=== PATIENT | female | born 1975 | race Two or more races ===

== ENCOUNTER → 2020-08-25 08:03 | Outpatient (BNVA) | payer BC, SELFPAY | PROVIDERS: PCP Internal Medicine; Referring Provider Internal Medicine; Visit Provider Surgery | DX: Z76.89 Persons encountering health services in other specified circumstances (principal) ==

== ENCOUNTER → 2020-10-04 07:24 | Outpatient (BNVA) | payer BC, SELFPAY | PROVIDERS: PCP Internal Medicine; Visit Provider Surgery | DX: Z76.89 Persons encountering health services in other specified circumstances (principal) ==

== ENCOUNTER → 2020-11-08 08:13 | Outpatient (BNVA) | payer BC, SELFPAY | PROVIDERS: PCP Internal Medicine; Visit Provider Surgery | DX: Z76.89 Persons encountering health services in other specified circumstances (principal) ==

== ENCOUNTER → 2021-01-10 07:28 | Outpatient (BNVA) | payer SELFPAY | PROVIDERS: PCP Internal Medicine; Visit Provider Surgery ==

== ENCOUNTER → 2021-02-25 07:15 | Outpatient (BNVA) | payer SELFPAY | PROVIDERS: PCP Internal Medicine; Visit Provider Surgery ==

== ENCOUNTER 2021-09-08 08:01 | Outpatient (REF) | payer BC, SELFPAY ==
[2021-09-08 09:29] LABS: MANUAL DIFF FLAG NO
[2021-09-08 10:08] LABS: Basophils Percent Auto 0.2 % (0-2); Eosinophils Percent Auto 0.6 % (0-4); Hematocrit 40.6 % (37.0-47.0); Hemoglobin 13.9 g/dl (12.0-16.0); Imm Gran Abs Auto 0.01 X10*3/uL (0.00-0.03); Imm Gran Pct Auto 0.2 % (0.0-0.4); Lymphocytes Absolute Auto 1.4 X10*3/uL (1.2-4.9); Lymphocytes Percent Auto 28.5 % (20-40); Mean Corpuscular HGB Conc 34.2 g/dl (31.0-35.0); Mean Corpuscular Hemoglobin 29.9 pg (27.0-33.0); Mean Corpuscular Volume 87.3 fL (80.0-98.0); Mean Platelet Volume 9.8 fL (9.4-12.3); Monocytes Absolute Auto 0.2 X10*3/uL (0.1-1.2); Monocytes Percent Auto 3.9 % (2-11); Neutrophils Absolute Auto 3.22 x10*3/uL (2.0-8.3); Neutrophils Percent Auto 66.6 % (45-73); Platelet Count 346 X10*3/uL (160-400); Red Blood Count 4.65 X10*6/uL (4.20-5.50); Red Cell Distribution Width 11.8 % (11.0-16.0); White Blood Count 4.8 X10*3/uL (4.8-10.8)
[2021-09-08 10:20] LABS: Prothrombin Time 11.6 SEC (9.9-13.0)
[2021-09-08 10:23] LABS: Partial Thromboplastin Time 36.4 SEC (24.1-38.0)
[2021-09-08 10:25] LABS: Estimated Average Glucose 105 mg/dL; Hemoglobin A1c % 5.3 %
[2021-09-08 10:48] LABS: Anion Gap 12 (12-20); Blood Urea Nitrogen 13 mg/dL (9-16); C Reactive Protein 0.09 mg/dL (< or = 0.50); Calcium 9.3 mg/dL (8.4-10.2); Carbon Dioxide 31 mmol/L (22-29); Chloride 101 mmol/L (96-108); Cholesterol 185 mg/dL; Estimated Glomerular Filt Rate > 60; Glucose Random 88 mg/dL (60-115); HDL Cholesterol 47 mg/dL; Iron 89 mcg/dL (30-160); LDL Cholesterol Calculated 120 mg/dl; Percent Iron Saturation 23 % (15-50); Potassium 3.1 mmol/L (3.3-5.1); Sodium 141 mmol/L (135-145); Total Iron Binding Capacity 380 mcg/dL (228-428); Triglycerides 90 mg/dL; Unsaturated Iron Binding 291 ug/dL
[2021-09-08 11:16] LABS: Ferritin 26 ng/mL (10-250); TSH reflex Free T4 1.83 uIU/mL (0.32-4.0); Vitamin D 25-OH Total 28.9 ng/mL (>30)
[2021-09-08 13:15] LABS: Vitamin B12 926 pg/mL (200-900)
[2021-09-09 14:12] LABS: Calcium (PTHI) 9.1 mg/dL (8.6-10.2); PTHI 59 pg/mL (14-64)
[2021-09-12 04:12] LABS: Zinc 82 mcg/dL (60-130)
[2021-09-12 06:31] LABS: Vitamin B1 40 nmol/L (8-30)
[2021-09-13 23:06] LABS: Vitamin A 44 mcg/dL (38-98)
== END 2021-09-08 08:02 | disposition home or self-care (01) ==
LOC: HO.LAB 08:01
PROVIDERS: Visit Provider Physician Assistant Surgical
DX: E66.9 Obesity, unspecified (principal); K90.9 Intestinal malabsorption, unspecified; Z79.899 Other long term (current) drug therapy; Z98.84 Bariatric surgery status
CPT/HCPCS: 36415; 80048; 80061; 82306; 82607; 82728; 83036; 83540; 83970; 84425; 84443; 84590; 84630; 85025; 85610; 85730; 86140

== ENCOUNTER 2022-06-27 12:03 | Emergency (ER) | payer BC, SELFPAY ==
[2022-06-27 12:14] VITALS: BP 151/92; PULSE 101; RESP 18; TEMP 36.9; O2SAT 97; BMI 33.6
[2022-06-27 15:43] LABS: MANUAL DIFF FLAG NO
[2022-06-27 15:45] LABS: Basophils Percent Auto 0.4 % (0-2); Eosinophils Percent Auto 0.6 % (0-4); Hematocrit 40.6 % (37.0-47.0); Hemoglobin 13.7 g/dl (12.0-16.0); Imm Gran Abs Auto 0.01 X10*3/uL (0.00-0.03); Imm Gran Pct Auto 0.1 % (0.0-0.4); Lymphocytes Absolute Auto 2.3 X10*3/uL (1.2-4.9); Mean Corpuscular HGB Conc 33.7 g/dl (31.0-35.0); Mean Corpuscular Hemoglobin 29.1 pg (27.0-33.0); Mean Corpuscular Volume 86.2 fL (80.0-98.0); Mean Platelet Volume 9.6 fL (9.4-12.3); Monocytes Absolute Auto 0.4 X10*3/uL (0.1-1.2); Neutrophils Absolute Auto 4.3 x10*3/uL (2.0-8.3); Neutrophils Percent Auto 60.9 % (45-73); Platelet Count 342 X10*3/uL (160-400); Red Blood Count 4.71 X10*6/uL (4.20-5.50); Red Cell Distribution Width 11.9 % (11.0-16.0)
--- NOTE | 2022-06-27 15:51 | ED_ITS ---
HPI - Recheck/Abnormal Lab/Rx General Chief Complaint: Recheck/Abnormal Lab/Rx Stated Complaint: Abnormal labs sent by pcp Time Seen by Provider: 06/27/22 14:54 Source: patient Mode of arrival: ambulatory Limitations: no limitations History of Present Illness HPI narrative: 46-year-old female with history of gastric bypass 2020 with chronic hypokalemia presents with reports of normal labs are drawn this morning by her primary care doctor. Patient has no symptoms. She feels well. She reports she had some his annual labs done this morning and was called and informed that her potassium was low and should go into the emergency room for further evaluation. Patient tells me she takes 10 mEq of potassium daily. Patient denies any recent illnesses. No vomiting or diarrhea. She has been eating and drinking normally. Patient tells me this is a chronic problem for her. Related Data Home Medications Medication Instructions Recorded Confirmed chlorthalidone 25 mg tablet 25 mg PO DAILY 09/08/21 09/08/21 clonazepam 1 mg tablet 1 mg PO BEDTIME PRN 09/08/21 09/08/21 dextroamphetamine-amphetamine 15 1 tab PO BID 09/08/21 09/08/21 mg tablet lorazepam 0.5 mg tablet 0.5 mg PO DAILY PRN 09/08/21 09/08/21 [id number]-yovbmkca-[id number] 45 mg-folic cap PO 09/08/21 09/08/21 acid 800 mcg-vit K 120 mcg capsule (Bariatric Multivitamins) nortriptyline 50 mg capsule mg PO 09/08/21 09/08/21 trazodone 100 mg tablet 100 mg PO BEDTIME 09/08/21 09/08/21 Previous Rx's Medication Instructions Recorded potassium chloride 10 mEq 10 meq PO DAILY #14 caps 09/08/21 capsule,extended release pantoprazole 40 mg tablet,delayed 40 mg PO DAILY #30 tabs 11/07/21 release sucralfate 1 gram tablet (Carafate) 1 g PO BID #60 tabs 05/04/22 potassium chloride 20 mEq 20 meq PO DAILY #30 tabs 06/27/22 tablet,extended release Allergies Allergy/AdvReac Type Severity Reaction Status Date / Time Pt states no medication Allergy Unknown Anaphylaxis Uncoded 09/08/21 08:13 allerg Review of Systems Review of Systems: Yes all other systems are reviewed and are negative Constitutional: Constitutional: Reports no additional constitutional complaints, Denies body ache(s), Denies chills, Denies fever(s), Denies headache(s) and Denies weakness Eyes: Eyes: Reports no additional eye complaints and Denies change in vision ENT: Reports system reviewed and no additional complaints, except as documented, Denies dizziness, Denies headache(s), Denies nasal congestion, Denies nasal discharge and Denies neck pain Cardiovascular: Cardiovascular: Reports no additional cardiovascular complaints, Denies chest pain, Denies leg edema and Denies dyspnea Respiratory: Respiratory: Reports no additional respiratory complaints, Denies cough and Denies dyspnea Gastrointestinal: Gastrointestinal: Reports no additional gastrointestinal complaints, Denies abdominal pain, Denies diarrhea, Denies nausea and Denies vomiting Genitourinary: Genitourinary: Reports no additional female genitourinary complaints and Denies urinary incontinence Musculoskeletal: Musculoskeletal: Reports no additional musculoskeletal complaints, Denies back pain, Denies arthralgias, Denies joint swelling, Denies neck pain, Denies numbness and Denies tingling Integumentary/Breasts: Skin/Breast: Reports system reviewed and no additional complaints, except as docu and Denies rash Neurologic: Reports system reviewed and no additional complaints, except as documented, Denies Abnormal speech present, Denies dizziness, Denies headache (s), Denies numbness, Denies tingling and Denies weakness PMFSH Past Medical History Attestation statement: The following information was validated with the patient. Source: old records reviewed and nursing notes reviewed Medical History Intestinal malabsorption Obesity Surgical History History of Mukul-en-Y gastric bypass Hx laparoscopic cholecystectomy Hx of section Status post gastric banding Family History Family History Father Prostate CA DM (diabetes mellitus) CVD (cardiovascular disease) HTN (hypertension) Obesity Arthritis Mother Obesity HTN (hypertension) Sister HTN (hypertension) Sister Ovarian ca Skin cancer DM (diabetes mellitus) HTN (hypertension) Sister Ovarian ca DM (diabetes mellitus) HTN (hypertension) Son No problems noted. Daughter No problems noted. Social History Social History Alcohol intake: never Advance Directives: No Advance Directives Information Provided: Yes Physical Exam Vital Signs: Vital Signs: Last Vital Signs Temp 98.4 F 06/27/22 12:14 Pulse 101 H 06/27/22 12:14 Resp 18 06/27/22 12:14 BP 151/92 H 06/27/22 12:14 Pulse Ox 97 06/27/22 12:14 O2 Del Method 06/27/22 12:14 BMI result Body Mass Index 33.6 Const: General: cooperative, healthy appearing, comfortable and no acute distress Orientation/consciousness: patient oriented x3 Limitations: no limitations HEENT: Head: Yes normal to inspection Ears: hearing grossly normal bilaterally General nose exam: Normal external nose present Face and sinus: Yes normal facial exam Mouth: Normal oral and palatal mucosa present Throat: Yes posterior oropharynx normal Eyes: General: appearance normal, both eyes and all related structures Pupils: Equal, round and reactive pupils present Neck: Neck: Yes normal visual inspection Chest: Chest palpation & inspection: normal inspection of the chest Resp: Effort & Inspection: normal respiratory effort Auscultation: clear to auscultation bilaterally Cardio: Rate: regular rate Rhythm: regular rhythm Peripheral pulses: Peripheral pulses 2+ throughout GI: Inspection: Yes normal to inspection Palpation (GI): Soft to palpation and nontender Auscultation: normal bowel sounds Back/Spine/Pelvis: Thoracic/Lumbar Spine: thoracic and lumbar spine normal to inspection Skin: General skin exam: no rashes or lesions noted Neuro: General: patient oriented x3, no focal motor deficits and normal sensation to monofilament Cranial nerves: Yes Equal, round and reactive pupils present Cognition (Neuro): normal cognition Speech: No Abnormal speech present Gait exam (Neuro): Normal gait present Motor exam (neuro): 5/5 motor strength present throughout Extrem: General: Yes normal to inspection Course Course Course Narrative: potassium is 3.0. All other labs are unremarkable. EKG shows no new changes. Patient has no symptoms and feels well. She tells me this is a chronic problem for her. She received 60 mEq of potassium while she was here. She will be discharged home with an increased dose of potassium daily. Patient is on multiple medications which may cause hypokalemia including omeprazole and chlorthalidone. She should follow-up with primary care doctor in 7 days for repeat potassium levels. Reviewed worrisome signs and symptoms of when to return to the emergency department. Comfortable discharge home. MDM - Recheck/Abnormal Lab/Rx MDM Narrative Medical decision making narrative: 46-year-old female sent in from her primary care doctor with abnormal labs that were drawn this morning annually. Patient tells me she was informed her potassium level was low but does not recall the number. These are not available for review in our computer system. Will repeat labs. She is asymptomatic Medical Records Attestation: I reviewed the patient's medical records. Lab Data Attestation: I reviewed the patient's lab results. Result diagrams: 06/27/22 15:39 06/27/22 15:39 Labs: Lab Results 06/27/22 06/27/22 Range/Units 15:39 15:39 WBC 7.0 (4.8-10.8) X10*3/uL RBC 4.71 (4.20-5.50) X10*6/uL Hgb 13.7 (12.0-16.0) g/dl Hct 40.6 (37.0-47.0) % MCV 86.2 (80.0-98.0) fL MCH 29.1 (27.0-33.0) pg MCHC 33.7 (31.0-35.0) g/dl RDW 11.9 (11.0-16.0) % Plt Count 342 (160-400) X10*3/uL MPV 9.6 (9.4-12.3) fL Immature Gran % (Auto) 0.1 (0.0-0.4) % Neut % (Auto) 60.9 (45-73) % Lymph % (Auto) 33.0 (20-40) % Calhoun % (Auto) 5.0 (2-11) % Eos % (Auto) 0.6 (0-4) % Baso % (Auto) 0.4 (0-2) % Lymph # (Auto) 2.3 (1.2-4.9) X10*3/uL Calhoun # (Auto) 0.4 (0.1-1.2) X10*3/uL Eos # (Auto) 0.0 (0.0-0.4) X10*3/uL Baso # (Auto) 0.0 (0.0-0.2) X10*3/uL Abs Immat Gran (auto) 0.01 (0.00-0.03) X10*3/uL Absolute Neuts (auto) 4.3 (2.0-8.3) x10*3/uL Absolute Nucleated RBC 0.000 (0.0-0.012) X10*3/uL Nucleated RBC % (auto) 0.0 (0.0-0.2) /100WBC Sodium 139 (135-145) mmol/L Potassium 3.0 L (3.3-5.1) mmol/L Chloride 97 (96-108) mmol/L Carbon Dioxide 31 H (22-29) mmol/L Anion Gap 14 (12-20) BUN 10 (9-16) mg/dL Creatinine 0.76 (0.5-1.4) mg/dL Estim Creat Clear Calc 103.4 Estimated GFR > 60 Random Glucose 114 (60-115) mg/dL Calcium 9.0 (8.4-10.2) mg/dL Magnesium 2.4 (1.6-2.6) mg/dL Total Bilirubin 0.7 (0.0-1.0) mg/dL Direct Bilirubin 0.2 (0.0-0.5) mg/dL AST 23 (5-31) U/L ALT 34 H (0-31) U/L Alkaline Phosphatase 95 (39-117) U/L Total Protein 7.2 (6.5-8.0) g/dL Albumin 4.1 (3.5-5.0) g/dL ECG Data Attestation: I personally reviewed and interpreted this ECG as follows: ECG interpretation date: 06/27/22 ECG interpretation time: 16:02 Interpretation: normal sinus rhythm with a rate of 86, normal MN, normal QRS, nonspecific ST changes seen diffusely which is unchanged when compared to EKG from 12/18/2017 Discharge Plan Discharge Clinical Impression: Hypokalemia Patient Disposition: Home, Self-Care Instructions: Potassium Content of Foods List (ED), Hypokalemia (ED) Additional Instructions: your potassium today was 3.0. you feel well and are asymptomatic. we gave few 60 mEq of potassium while you were here starting tomorrow increase her dose to 20 mEq of potassium daily follow-up with your doctor within 7 days to have a repeat potassium level checked return to the emergency room for any weakness, dizziness, palpitations your other labs and EKG are normal Prescriptions: New potassium chloride 20 mEq tablet extended release 20 meq PO DAILY Qty: 30 0RF No Action potassium chloride 10 mEq capsule, extended release 10 meq PO DAILY Qty: 14 0RF pantoprazole 40 mg tablet,delayed release (DR/EC) 40 mg PO DAILY Qty: 30 5RF sucralfate [Carafate] 1 gram tablet 1 g PO BID Qty: 60 11RF chlorthalidone 25 mg tablet 25 mg PO DAILY nortriptyline 50 mg capsule PO clonazepam 1 mg tablet 1 mg PO BEDTIME PRN dextroamphetamine-amphetamine 15 mg tablet 1 tab PO BID lorazepam 0.5 mg tablet 0.5 mg PO DAILY PRN trazodone 100 mg tablet 100 mg PO BEDTIME Bariatric Multivitamins 45 mg iron- 800 mcg-120 mcg capsule PO Referrals: Physician,Unknown J [Primary Care Provider] - Stand Alone Forms: Work/School Release Interventions: ED Discharge Assessment Last Done: 06/27/22 16:55 Discharge Date/Time: 06/27/22 16:55
[2022-06-27 16:07] LABS: Alanine Aminotransferase 34 U/L (0-31); Albumin Level 4.1 g/dL (3.5-5.0); Alkaline Phosphatase 95 U/L (39-117); Anion Gap 14 (12-20); Aspartate Amino Transferase 23 U/L (5-31); Bilirubin Direct 0.2 mg/dL (0.0-0.5); Bilirubin Total 0.7 mg/dL (0.0-1.0); Blood Urea Nitrogen 10 mg/dL (9-16); Carbon Dioxide 31 mmol/L (22-29); Chloride 97 mmol/L (96-108); Creatinine Clr Calc Pharmacy 103.4; Estimated Glomerular Filt Rate > 60; Glucose Random 114 mg/dL (60-115); Magnesium 2.4 mg/dL (1.6-2.6); Sodium 139 mmol/L (135-145); Total Protein 7.2 g/dL (6.5-8.0)
--- NOTE | 2022-06-27 16:09 | ECG_ITS ---
Test Reason : abnormal labs Blood Pressure : / mmHG Vent. Rate : 086 BPM Atrial Rate : 086 BPM P-R Int : 148 ms QRS Dur : 090 ms QT Int : 388 ms P-R-T Axes : 052 011 010 degrees QTc Int : 464 ms Normal sinus rhythm Nonspecific ST and T wave abnormality Abnormal ECG When compared with ECG of 18-DEC-2017 07:34, Nonspecific T wave abnormality now evident in Lateral leads Referred By: Zenobia Carolina Electronically Signed By:HARITHA BRISENO
[2022-06-27] MEDS: Potassium Chloride ER 20 MEQ TAB.ER.PRT 60 MEQ PO (16:26)
== END 2022-06-27 16:55 | disposition home or self-care (01) ==
PROVIDERS: Nurse Practitioner Family; Emergency Provider Emergency Medicine
DX: E87.6 Hypokalemia (principal); R79.89 Other specified abnormal findings of blood chemistry; Z79.899 Other long term (current) drug therapy; Z98.84 Bariatric surgery status
CPT/HCPCS: 36415; 80048; 80076; 83735; 85025; 93005; 99283; 99284

== ENCOUNTER 2023-12-18 09:36 | Outpatient (AMB) | payer OTHER, SELFPAY ==
--- NOTE | 2023-12-18 09:30 | MHC.OFFVISWM ---
Intake VS Expanded 12/18/23 09:39 Height 5 ft 5 in Weight 229 lb BMI 38.1 Intake Visit Reasons: (TELEPHONE) PO LRYGB 01/13/20 Allergies Pt states no medication allerg Allergy (Unknown, Uncoded 09/08/21 08:13) Anaphylaxis Medication List - Last Reconciled 12/18/23 by NIEVES Galdamez chlorthalidone 25 mg PO DAILY clonazepam 1 mg PO BEDTIME PRN dextroamphetamine-amphetamine 15 mg 1 tab PO BID lorazepam 0.5 mg PO DAILY PRN vsgqahfpiquy-tlf-rrtn-FA-vit K 45 mg iron- 800 mcg-120 mcg (Bariatric Multivitamins) caps PO nortriptyline mg PO pantoprazole 40 mg PO DAILY potassium chloride ER 20 mEq PO DAILY potassium chloride ER 10 mEq PO DAILY sucralfate (Carafate) 1 g PO BID trazodone 100 mg PO BEDTIME HPI HPI Comments History of Present Illness Details This?is a?48?yo female who is s/p RYGB 01/13/2020. Presents for 3 year 11 month post op visit. Weight at last visit on 08/18/2022 was 200 pounds with a BMI of 33.3, weight today is 229 pounds, representing a 29 pound weight loss with a BMI today of 38.1.? Pt had not weighed herself in a while and realized she had gained a lot of weight. Had been drinking 4 diet sodas per day, now down to 2; was eating a lot of carbs. All the bad habits have come back. Does have a therapist. Does note some rashes of excess skin of abdomen, has been using topical treatment like Goldbond powder. Has to use daily. Present meal plan includes: not following any plan Exercise routine includes: has videos at home, likes to walk but hasn't been exercising [facility] Medical History Intestinal malabsorption Obesity Surgical History History of Mukul-en-Y gastric bypass Hx laparoscopic cholecystectomy Hx of section Status post gastric banding Family History Father Prostate CA DM (diabetes mellitus) CVD (cardiovascular disease) HTN (hypertension) Obesity Arthritis Mother Obesity HTN (hypertension) Sister HTN (hypertension) Sister Ovarian ca Skin cancer DM (diabetes mellitus) HTN (hypertension) Sister Ovarian ca DM (diabetes mellitus) HTN (hypertension) Son No problems noted. Daughter No problems noted. Social History Alcohol intake: never Assessment & Plan Assessment & Plan (1) History of gastric bypass: Code(s): Z98.84 - Bariatric surgery status (2) Obesity (BMI 30.0-34.9): Code(s): E66.9 - Obesity, unspecified Plan New meal plan: Breakfast- Hungarian yogurt Lunch- Celebrate shake with 2 scoops powder in 8oz Fairlife milk Snack- ZP bar Dinner- 6 forks protein, 6 forks salad/veg Encouraged pt to resume exercise, goal of 2000 calories/week burned. Labs ordered. Clotrimazole ointment ordered for rashes of excess skin. RTC 6-8 weeks to monitor progress. Pt will reach out via email between appts with any concerns. Patient is obese and is not considered stable at this time. I spent a total of 30 minutes reviewing/updating records, examining the patient and counseling the patient on weight management as detailed above. Orders: Orders Hemoglobin A1c Today Z98.84 - Bariatric surgery status Zinc Today Z98.84 - Bariatric surgery status C Reactive Protein Today Z98.84 - Bariatric surgery status Ferritin Today Z98.84 - Bariatric surgery status Insulin Today Z98.84 - Bariatric surgery status Complete Blood Count Auto Diff Today Z98.84 - Bariatric surgery status Lipid Panel Today Z98.84 - Bariatric surgery status IRON PROFILE Today Z98.84 - Bariatric surgery status Comprehensive Met. Panel Today Z98.84 - Bariatric surgery status Vitamin B12 and Folate Today Z98.84 - Bariatric surgery status Vitamin B1 Today Z98.84 - Bariatric surgery status Vitamin A Today Z98.84 - Bariatric surgery status TSH reflex Free T4 Today Z98.84 - Bariatric surgery status Vitamin D 25-OH Total Today Z98.84 - Bariatric surgery status Medications: New clotrimazole 1% 1 appl topical BID 45 grams 3RF Telehealth Telehealth Location of provider rendering services: practice address Location of patient: address on file Patient Identification confirmed using: Name, : Yes Telehealth method: voice only Patient verbally consented to treatment: Yes Patient verbally consented to billing insurance company: Yes Patient informed of any privacy concerns related to visit: Yes Minutes spent on Phone/Video with Pt.: 20 Coding Level of Care Code Tele Est Pt Level 4 (07357) Diagnoses History of gastric bypass Z98.84 Obesity (BMI 30.0-34.9) E66.9
[2023-12-18 09:39] VITALS: BMI 38.1
== END 2023-12-18 09:55 | disposition home or self-care (01) ==
LOC: HO.HBS 09:36
PROVIDERS: Visit Provider Physician Assistant Surgical
DX: E66.9 Obesity, unspecified (principal); Z68.38 Body mass index [BMI] 38.0-38.9, adult; Z98.84 Bariatric surgery status
CPT/HCPCS: G2252

== ENCOUNTER → 2023-12-18 09:36 | Outpatient (BNVA) | payer OTHER, SELFPAY | PROVIDERS: Visit Provider Physician Assistant Surgical ==

== ENCOUNTER 2023-12-25 07:09 | Outpatient (REF) | payer OTHER, SELFPAY ==
[2023-12-25 07:25] LABS: MANUAL DIFF FLAG NO
[2023-12-25 07:47] LABS: Basophils Percent Auto 0.4 % (0-2); Eosinophils Absolute Auto 0.1 X10*3/uL (0.0-0.4); Eosinophils Percent Auto 1.3 % (0-4); Hematocrit 39.8 % (37.0-47.0); Hemoglobin 13.4 g/dl (12.0-16.0); Imm Gran Abs Auto 0.02 X10*3/uL (0.00-0.03); Imm Gran Pct Auto 0.3 % (0.0-0.4); Lymphocytes Absolute Auto 2.3 X10*3/uL (1.2-4.9); Lymphocytes Percent Auto 28.8 % (20-40); Mean Corpuscular HGB Conc 33.7 g/dl (31.0-35.0); Mean Corpuscular Hemoglobin 29.3 pg (27.0-33.0); Mean Corpuscular Volume 87.1 fL (80.0-98.0); Mean Platelet Volume 9.8 fL (9.4-12.3); Monocytes Absolute Auto 0.4 X10*3/uL (0.1-1.2); Monocytes Percent Auto 4.5 % (2-11); Neutrophils Absolute Auto 5.2 x10*3/uL (2.0-8.3); Neutrophils Percent Auto 64.7 % (45-73); Platelet Count 321 X10*3/uL (160-400); Red Blood Count 4.57 X10*6/uL (4.20-5.50); Red Cell Distribution Width 12.2 % (11.0-16.0)
[2023-12-25 07:55] LABS: Estimated Average Glucose 105 mg/dL; Hemoglobin A1c % 5.3 % (<6.0)
[2023-12-25 08:18] LABS: Alanine Aminotransferase 27 U/L (0-31); Albumin Level 3.8 g/dL (3.5-5.0); Alkaline Phosphatase 84 U/L (39-117); Anion Gap 13 (12-20); Aspartate Amino Transferase 21 U/L (5-31); Bilirubin Total 0.3 mg/dL (0.0-1.0); Blood Urea Nitrogen 8 mg/dL (9-16); C Reactive Protein 0.59 mg/dL (< or = 0.50); Calcium 8.5 mg/dL (8.4-10.2); Carbon Dioxide 30 mmol/L (22-29); Chloride 101 mmol/L (96-108); Cholesterol 179 mg/dL (<200); Estimated Glomerular Filt Rate > 60; Glucose Random 91 mg/dL (60-115); HDL Cholesterol 44 mg/dL (>40); Iron 60 mcg/dL (30-160); LDL Cholesterol Calculated 106 mg/dL (<100); Percent Iron Saturation 16 % (15-50); Sodium 141 mmol/L (135-145); Total Iron Binding Capacity 375 mcg/dL (228-428); Triglycerides 146 mg/dL (<150); Unsaturated Iron Binding 315 ug/dL
[2023-12-25 08:33] LABS: Ferritin 13 ng/mL (10-250); Insulin 12 uU/mL (2-29); TSH reflex Free T4 6.81 uIU/mL (0.32-4.0); Vitamin D 25-OH Total 28.2 ng/mL (>30)
[2023-12-25 08:47] LABS: Folate 16.8 ng/mL (> or = 4.0); Vitamin B12 1072 pg/mL (200-900)
[2023-12-27 12:59] LABS: Zinc 69 mcg/dL (60-130)
[2023-12-28 00:33] LABS: Vitamin A 42 mcg/dL (38-98)
[2023-12-29 11:28] LABS: Vitamin B1 68 nmol/L (8-30)
== END 2023-12-25 07:10 | disposition home or self-care (01) ==
LOC: HO.LAB 07:09
PROVIDERS: Visit Provider Physician Assistant Surgical
DX: Z98.84 Bariatric surgery status (principal)
CPT/HCPCS: 36415; 80053; 80061; 82306; 82607; 82728; 82746; 83036; 83525; 83540; 84425; 84439; 84443; 84590; 84630; 85025; 86140

== ENCOUNTER 2024-02-22 15:07 | Outpatient (AMB) | payer OTHER, SELFPAY ==
--- NOTE | 2024-02-22 15:05 | MHC.OFFVISPS ---
Intake Vital Signs 02/25/24 09:39 Height 5 ft 5 in Weight 168 lb Intake Visit Reasons: depression, [place]ODROW (generalized anxiety disorder), ADHD, Panic disorder without agoraphobia with panic attacks in partial remission Patient Services Coordinator Required: No Allergies Pt states no medication allerg Allergy (Unknown, Uncoded 09/08/21 08:13) Anaphylaxis HPI- Psychiatric Chief Complaint: depression, [place] (generalized anxiety disorder), ADHD, Panic disorder without agoraphobia with panic attacks in partial remission HPI Narrative: Pt reports out of meds fro 2 days; has been struggling due to work stress; anxious, sad. Her older daughter is very sick and no diagnosis yet- dtr is being worked up for autoimmune disorder but not clear dx yet. pt very worried about her. 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 pt states when she takes the medications they help and she denies side effects; has had trouble finding new provider Past Psychiatric History: HCC: was seeing Dr. Tian, meds help, tried to wean off meds but didn't go well; Dec-March are very difficult months. In the past, she saw Dr. Tian for 3 years, started therapy about 3.5 years ago, suffered from depression since a child, insomnia, ADHD, panic disorder Panic attacks: Yes Agoraphobia: No Separation anxiety disorder: No Social phobia: No Specific phobia: No Hypochondriasis: No Body dysmorphic disorder: No Obsessive compulsive disorder: No Generalized anxiety: Yes Post traumatic stress disorder: No Acute stress disorder: No Previous psychiatric history: Yes Previous inpatient psychiatric hospitalization: No Other previous psychiatric treatment programs: none History of suicidal ideation: No History of suicide attempt: No Medically hospitalized: No History of self injurious behavior: No History of violence: No Current/previous psychiatrist: william Current/previous therapist: none Subjective Subjective Subjective Medication Compliance: Yes Side effects from medications: No Review of Systems Medical Review of Systems: unchanged Review of Systems Review of Systems Yes all other systems are reviewed and are negative Mental Status Exam Mental Status Exam Patient Appearance: Well Grooomed and Appropriate Patient Orientation: Person, Place, Time and Situation Level of Consciousness: Awake Patient Behavior: Appropriate and Restless Mood Description: Anxious and Sad Affect Description: Anxious and Sad Patient Cognition Impaired: No Ability to Follow Directions: Good Speech Pattern: Clear and Appropriate Memory Description: Intact and Normal for Patient Hallucinations: None Delusions: Not Present Thought Process: Intact, Distracted and Goal Oriented Thought Content: positive for Intact and positive for Goal Oriented Judgement: Good Assessment and Plan Assessment & Plan (1) Generalized anxiety disorder: Code(s): F41.1 - Generalized anxiety disorder (2) Panic disorder without agoraphobia with panic attacks in partial remission: Code(s): F41.0 - Panic disorder [episodic paroxysmal anxiety] (3) ADHD (attention deficit hyperactivity disorder), inattentive type: Status: Acute Code(s): F90.0 - Attention-deficit hyperactivity disorder, predominantly inattentive type (4) Major depressive disorder, recurrent episode, in partial remission: Status: Acute Code(s): F33.41 - Major depressive disorder, recurrent, in partial remission Plan continue home medications work with patient to find new psychiatric providers in community Medications: New lorazepam (Ativan) 0.5 mg PO BID PRN 60 tabs 2RF anxiety trazodone 100 mg PO BEDTIME 30 tabs 2RF nortriptyline 100 mg (2 x 50 mg) PO BEDTIME 60 caps 2RF dextroamphetamine-amphetamine 15 mg (Adderall) administer doses at least 4-6 hours apart; Partial Fill upon patient request. 15 mg PO BID 60 tabs 0RF clonazepam 0.5 mg orally take one in am and 2 at bedtime; 90 tabs 2RF Counseling and coordination of Care Pt. Self Management counseling: Maintenance-social rhythm, Mod caffeine/ETOH intake, Sleep hygiene and General coping skills Medication management counseling: Effectiveness, Side effects, Dosing range, Duration, Drug interaction and Adherence Diagnosis and Prognosis Counseling: Accuracy of diagnosis, Prognosis over time, Impact of diagnosis on life functions, Impact of family relationship, Problematic behaviors secondary to diagnosis and Adequacy of current interventions Details: I spent 30 minutes reviewing the record, seeing the patient and documenting in the medical record. Counseling provided to the patient/caregiver as outlined below. Addressed patient/caregiver concerns regarding current medication regime including effective adherence. Addressed patient/caregiver concerns regarding diagnosis and prognosis including accuracy of diagnosis, prognosis over time, impact of diagnosis. Addressed patient/caregiver concerns regarding impact of recent stressors. [facility] Medical History Intestinal malabsorption Obesity Surgical History History of Mukul-en-Y gastric bypass Hx laparoscopic cholecystectomy Hx of section Status post gastric banding Family History Father Prostate CA DM (diabetes mellitus) CVD (cardiovascular disease) HTN (hypertension) Obesity Arthritis Mother Obesity HTN (hypertension) Sister HTN (hypertension) Sister Ovarian ca Skin cancer DM (diabetes mellitus) HTN (hypertension) Sister Ovarian ca DM (diabetes mellitus) HTN (hypertension) Son No problems noted. Daughter No problems noted. Social History Alcohol intake: never Social History: grew up in [place], lived with parents, 1 sister 52 years old, 1 brother who in 2014 (41 year old) murder suicide him and 3 year old son, dad Nov. always ill, heart problem in 2018, close with dad, and mom and sister,. Has 2 children 23 year old daughter who lives alone and 13 year old son who lives with dad (for 2 years now) Pt has guardianship of niece and takes car of her Substance History: none Trauma History: loss of brother and nephew Coding Level of Care Code Est Pt Level 4 (58190) Diagnoses Generalized anxiety disorder F41.1 Panic disorder without agoraphobia with panic attacks in partial remission F41.0 ADHD (attention deficit hyperactivity disorder), inattentive type F90.0 Major depressive disorder, recurrent episode, in partial remission F33.41
== END 2024-02-22 17:51 | disposition home or self-care (01) ==
LOC: HO.HOP 15:07
PROVIDERS: PCP Internal Medicine; Visit Provider Clinical Nurse Specialist Psychiatric/Mental Health
DX: F41.1 Generalized anxiety disorder (principal); F41.0 Panic disorder [episodic paroxysmal anxiety]; F90.0 Attention-deficit hyperactivity disorder, predominantly inattentive type; F33.41 Major depressive disorder, recurrent, in partial remission
CPT/HCPCS: 99214

== ENCOUNTER → 2024-02-22 15:07 | Outpatient (BNVA) | payer OTHER, SELFPAY | PROVIDERS: PCP Internal Medicine; Visit Provider Clinical Nurse Specialist Psychiatric/Mental Health ==

== ENCOUNTER 2024-04-18 13:18 | Outpatient (AMB) | payer OTHER, SELFPAY ==
--- NOTE | 2024-04-18 14:03 | MHC.OFFVISPS ---
Intake Intake Visit Reasons: depression Allergies Pt states no medication allerg Allergy (Unknown, Uncoded 09/08/21 08:13) Anaphylaxis Medication List - Last Reconciled 04/18/24 by Emely Shah APRN cetirizine 10 mg PO DAILY chlorthalidone 25 mg PO DAILY cholecalciferol (vitamin D3) 50 mcg PO DAILY clonazepam 0.5 mg orally take one in am and 2 at bedtime; clotrimazole-betamethasone 1-0.05 % 1 appl topical BID dextroamphetamine-amphetamine 15 mg (Adderall) 15 mg PO BID lorazepam (Ativan) 0.5 mg PO BID PRN [id number] K 45 mg iron- 800 mcg-120 mcg (Bariatric Multivitamins) caps PO nortriptyline 100 mg (2 x 50 mg) PO BEDTIME nystatin topical pantoprazole 40 mg PO DAILY potassium chloride ER 20 mEq PO DAILY sucralfate (Carafate) 1 g PO BID trazodone 100 mg PO BEDTIME HPI- Psychiatric Chief Complaint: depression HPI Narrative: pt reports some difficulties with family and work stress; PHQ9 = 9 GAD7 = 14. pt compliant with meds; she reports happy and proud of son who just graduated from . some increase stress hving to be around her ex(son's father) but coping well and setting boundaries. reports meds helpful. no SI or Hi. sleep fair. Past Psychiatric History: HCC: was seeing Dr. Tian, meds help, tried to wean off meds but didn't go well; Dec-March are very difficult months. In the past, she saw Dr. Tian for 3 years, started therapy about 3.5 years ago, suffered from depression since a child, insomnia, ADHD, panic disorder Subjective Subjective Subjective Medication Compliance: Yes Side effects from medications: No Review of Systems Medical Review of Systems: unchanged Mental Status Exam Mental Status Exam Patient Appearance: Well Grooomed and Appropriate Patient Orientation: Person, Place, Time and Situation Level of Consciousness: Awake and Alert Patient Behavior: Appropriate Mood Description: Anxious and Sad Affect Description: Anxious and Sad Patient Cognition Impaired: No Ability to Follow Directions: Good Speech Pattern: Clear and Coherent Memory Description: Intact Hallucinations: None Delusions: Not Present Thought Process: Intact and Goal Oriented Thought Content: positive for Intact and positive for Goal Oriented Judgement: Good Assessment and Plan Assessment & Plan (1) Major depressive disorder, recurrent episode, in partial remission: Status: Acute Code(s): F33.41 - Major depressive disorder, recurrent, in partial remission (2) ADHD (attention deficit hyperactivity disorder), inattentive type: Status: Acute Code(s): F90.0 - Attention-deficit hyperactivity disorder, predominantly inattentive type (3) WOODROW (generalized anxiety disorder): Status: Acute Code(s): F41.1 - Generalized anxiety disorder Plan continue current medications as below return in 3 months Medications: Refilled dextroamphetamine-amphetamine 15 mg (Adderall) administer doses at least 4-6 hours apart; Partial Fill upon patient request. 15 mg PO BID 60 tabs 0RF lorazepam (Ativan) 0.5 mg PO BID PRN 60 tabs 2RF anxiety nortriptyline 100 mg (2 x 50 mg) PO BEDTIME 60 caps 2RF clonazepam 0.5 mg orally take one in am and 2 at bedtime; 90 tabs 2RF trazodone 100 mg PO BEDTIME 30 tabs 2RF Counseling and coordination of Care Pt. Self Management counseling: Maintenance-social rhythm and General coping skills Medication management counseling: Effectiveness, Side effects, Dosing range, Duration, Drug interaction and Adherence Diagnosis and Prognosis Counseling: Accuracy of diagnosis, Prognosis over time, Impact of diagnosis on life functions, Impact of family relationship, Problematic behaviors secondary to diagnosis and Adequacy of current interventions Details: I spent 30 minutes reviewing the record, seeing the patient and documenting in the medical record. Counseling provided to the patient/caregiver as outlined below. Addressed patient/caregiver concerns regarding current medication regime including effective adherence. Addressed patient/caregiver concerns regarding diagnosis and prognosis including accuracy of diagnosis, prognosis over time, impact of diagnosis. Addressed patient/caregiver concerns regarding impact of recent stressors. [facility] Medical History Intestinal malabsorption Obesity Surgical History History of Mukul-en-Y gastric bypass Hx laparoscopic cholecystectomy Hx of section Status post gastric banding Family History Father Prostate CA DM (diabetes mellitus) CVD (cardiovascular disease) HTN (hypertension) Obesity Arthritis Mother Obesity HTN (hypertension) Sister HTN (hypertension) Sister Ovarian ca Skin cancer DM (diabetes mellitus) HTN (hypertension) Sister Ovarian ca DM (diabetes mellitus) HTN (hypertension) Son No problems noted. Daughter No problems noted. Social History Alcohol intake: never Social History: grew up in [place], lived with parents, 1 sister 52 years old, 1 brother who in 2014 (41 year old) murder suicide him and 3 year old son, dad Nov. always ill, heart problem in 2019, close with dad, and mom and sister,. Has 2 children 23 year old daughter who lives alone and 13 year old son who lives with dad (for 2 years now) Pt has guardianship of niece and takes car of her Substance History: none Trauma History: loss of brother and nephew Coding Level of Care Code Est Pt Level 4 (14287) Diagnoses Major depressive disorder, recurrent episode, in partial remission F33.41 ADHD (attention deficit hyperactivity disorder), inattentive type F90.0 WOODROW (generalized anxiety disorder) F41.1
== END 2024-04-18 13:48 | disposition home or self-care (01) ==
LOC: HO.HOP 13:18
PROVIDERS: PCP Internal Medicine; Visit Provider Clinical Nurse Specialist Psychiatric/Mental Health
DX: F33.41 Major depressive disorder, recurrent, in partial remission (principal); F90.0 Attention-deficit hyperactivity disorder, predominantly inattentive type; F41.1 Generalized anxiety disorder
CPT/HCPCS: 99214

== ENCOUNTER → 2024-04-18 13:18 | Outpatient (BNVA) | payer OTHER, SELFPAY | PROVIDERS: PCP Internal Medicine; Visit Provider Clinical Nurse Specialist Psychiatric/Mental Health ==

== ENCOUNTER 2024-07-04 14:53 | Outpatient (AMB) | payer OTHER, SELFPAY ==
--- NOTE | 2024-07-04 15:07 | A.OFFPSYCH_ITS ---
Intake Intake Visit Reasons: depression Software Technical Lead Required: No Allergies Pt states no medication allerg Allergy (Unknown, Uncoded 09/08/21 08:13) Anaphylaxis Medication List - Last Reconciled 07/04/24 by Emley Shah APRN cetirizine 10 mg PO DAILY chlorthalidone 25 mg PO DAILY cholecalciferol (vitamin D3) 50 mcg PO DAILY clonazepam 0.5 mg orally take one in am and 2 at bedtime; clotrimazole-betamethasone 1-0.05 % 1 appl topical BID dextroamphetamine-amphetamine 15 mg (Adderall) 15 mg PO BID lorazepam (Ativan) 0.5 mg PO BID PRN [id number]-FA-vit K 45 mg iron- 800 mcg-120 mcg (Bariatric Multivitamins) caps PO nortriptyline 100 mg (2 x 50 mg) PO BEDTIME nystatin topical pantoprazole 40 mg PO DAILY potassium chloride ER 20 mEq PO DAILY sucralfate (Carafate) 1 g PO BID trazodone 100 mg PO BEDTIME HPI- Psychiatric Chief Complaint: depression HPI Narrative: pt reports increased anxiety and depression symptoms ; she attributes to work stress; many changes and conflict a work; pt is compliant with medications- no side effects; she is on vacation from work and feels symptoms improve when she gets a break from work; no SI or HI. wants to keep the medication the same for now. Past Psychiatric History: HCC: was seeing Dr. Tian, meds help, tried to wean off meds but didn't go well; Dec-March are very difficult months. In the past, she saw Dr. Tian for 3 years, started therapy about 3.5 years ago, suffered from depression since a child, insomnia, ADHD, panic disorder Subjective Subjective Subjective Medication Compliance: Yes Side effects from medications: No Review of Systems Medical Review of Systems: unchanged Mental Status Exam Mental Status Exam Patient Appearance: Well Grooomed and Appropriate Patient Orientation: Person, Place, Time and Situation Level of Consciousness: Awake, Appropriate and Alert Patient Behavior: Appropriate and Cooperative Mood Description: Anxious Affect Description: Anxious Patient Cognition Impaired: No Ability to Follow Directions: Good Speech Pattern: Clear Memory Description: Intact Hallucinations: None Delusions: Not Present Thought Process: Intact Thought Content: positive for Intact Judgement: Good Assessment and Plan Assessment & Plan (1) WOODROW (generalized anxiety disorder): Status: Acute Code(s): F41.1 - Generalized anxiety disorder (2) Major depressive disorder, recurrent episode, in partial remission: Status: Acute Code(s): F33.41 - Major depressive disorder, recurrent, in partial remission (3) ADHD (attention deficit hyperactivity disorder), inattentive type: Status: Acute Code(s): F90.0 - Attention-deficit hyperactivity disorder, predominantly inattentive type Plan continue medication no changes return in 3 months Medications: Refilled dextroamphetamine-amphetamine 15 mg (Adderall) administer doses at least 4-6 hours apart; Partial Fill upon patient request. 15 mg PO BID 60 tabs 0RF nortriptyline 100 mg (2 x 50 mg) PO BEDTIME 60 caps 2RF lorazepam (Ativan) 0.5 mg PO BID PRN 60 tabs 2RF anxiety clonazepam 0.5 mg orally take one in am and 2 at bedtime; 90 tabs 2RF trazodone 100 mg PO BEDTIME 30 tabs 2RF Counseling and coordination of Care Pt. Self Management counseling: Sleep hygiene and General coping skills Medication management counseling: Effectiveness, Side effects, Dosing range, Duration, Drug interaction and Adherence Diagnosis and Prognosis Counseling: Accuracy of diagnosis, Prognosis over time and Adequacy of current interventions Details: I spent [] minutes reviewing the record, seeing the patient and documenting in the medical record. Counseling provided to the patient/caregiver as outlined below. Addressed pa tient/caregiver concerns regarding current medication regime including effective adherence. Addressed patient/caregiver concerns regarding diagnosis and prognosis including accuracy of diagnosis, prognosis over time, impact of diagnosis. Addressed patient/caregiver concerns regarding impact of recent stressors. [facility] Medical History Intestinal malabsorption Obesity Surgical History History of Mukul-en-Y gastric bypass Hx laparoscopic cholecystectomy Hx of section Status post gastric banding Family History Father Prostate CA DM (diabetes mellitus) CVD (cardiovascular disease) HTN (hypertension) Obesity Arthritis Mother Obesity HTN (hypertension) Sister HTN (hypertension) Sister Ovarian ca Skin cancer DM (diabetes mellitus) HTN (hypertension) Sister Ovarian ca DM (diabetes mellitus) HTN (hypertension) Son No problems noted. Daughter No problems noted. Social History Alcohol intake: never Social History: grew up in [place], lived with parents, 1 sister 52 years old, 1 brother who in 2014 (41 year old) murder suicide him and 3 year old son, dad Nov. always ill, heart problem in 2019, close with dad, and mom and sister,. Has 2 children 23 year old daughter who lives alone and 13 year old son who lives with dad (for 2 years now) Pt has guardianship of niece and takes car of her Substance History: none Trauma History: loss of brother and nephew Coding Level of Care Code Est Pt Level 4 (96739) Diagnoses WOODROW (generalized anxiety disorder) F41.1 Major depressive disorder, recurrent episode, in partial remission F33.41 ADHD (attention deficit hyperactivity disorder), inattentive type F90.0
== END 2024-07-04 15:28 | disposition home or self-care (01) ==
LOC: HO.HOP 14:53
PROVIDERS: PCP Internal Medicine; Visit Provider Clinical Nurse Specialist Psychiatric/Mental Health
DX: F41.1 Generalized anxiety disorder (principal); F33.41 Major depressive disorder, recurrent, in partial remission; F90.0 Attention-deficit hyperactivity disorder, predominantly inattentive type
CPT/HCPCS: 99214

== ENCOUNTER → 2024-07-04 14:53 | Outpatient (BNVA) | payer OTHER, SELFPAY | PROVIDERS: PCP Internal Medicine; Visit Provider Clinical Nurse Specialist Psychiatric/Mental Health ==

== ENCOUNTER 2024-10-24 09:09 | Outpatient (AMB) | payer OTHER, SELFPAY ==
--- NOTE | 2024-10-24 09:11 | A.OFFPSYCH_ITS ---
Intake Intake Visit Reasons: consult follow up [employer] Supervisor Required: No Allergies Pt states no medication allerg Allergy (Unknown, Uncoded 09/08/21 08:13) Anaphylaxis Medication List - Last Reconciled 10/24/24 by Emely Shah APRN cetirizine 10 mg PO DAILY chlorthalidone 25 mg PO DAILY cholecalciferol (vitamin D3) 50 mcg PO DAILY clonazepam 0.5 mg orally take one in am and 2 at bedtime; clotrimazole-betamethasone 1-0.05 % 1 appl topical BID dextroamphetamine-amphetamine 15 mg (Adderall) 15 mg PO BID lorazepam (Ativan) 0.5 mg PO BID PRN [id number]-vit K 45 mg iron- 800 mcg-120 mcg (Bariatric Multivitamins) caps PO nortriptyline 100 mg (2 x 50 mg) PO BEDTIME nystatin topical pantoprazole 40 mg PO DAILY potassium chloride ER 20 mEq PO DAILY sucralfate (Carafate) 1 g PO BID trazodone 100 mg PO BEDTIME HPI- Psychiatric Chief Complaint: consult follow up HPI Narrative: pt is stable; taking medications consistently; reports stress with work. PHQ9= 9 and GAD7= 16 She reports anxiety especially in realtion to work. no SI or HI. no medical changes. Past Psychiatric History: HCC: was seeing Dr. Tian, meds help, tried to wean off meds but didn't go well; Dec-March are very difficult months. In the past, she saw Dr. Tian for 3 years, started therapy about 3.5 years ago, suffered from depression since a child, insomnia, ADHD, panic disorder Subjective Subjective Subjective Medication Compliance: Yes Side effects from medications: No Review of Systems Medical Review of Systems: unchanged Mental Status Exam Mental Status Exam Patient Appearance: Well Grooomed and Appropriate Patient Orientation: Person, Place, Time and Situation Level of Consciousness: Awake and Appropriate Patient Behavior: Appropriate and Cooperative Mood Description: Anxious Affect Description: Anxious Patient Cognition Impaired: No Ability to Follow Directions: Good Speech Pattern: Clear Memory Description: Intact Hallucinations: None Delusions: Not Present Thought Process: Intact and Goal Oriented Thought Content: positive for Intact and positive for Goal Oriented Judgement: Good Assessment and Plan Assessment & Plan (1) WOODROW (generalized anxiety disorder): Status: Acute Code(s): F41.1 - Generalized anxiety disorder (2) Major depressive disorder, recurrent episode, in partial remission: Status: Acute Code(s): F33.41 - Major depressive disorder, recurrent, in partial remission (3) ADHD (attention deficit hyperactivity disorder), inattentive type: Status: Acute Code(s): F90.0 - Attention-deficit hyperactivity disorder, predominantly inattentive type Plan continue medications as is. return in 3 months Medications: Refilled cholecalciferol (vitamin D3) 50 mcg PO DAILY 90 caps 3RF clonazepam 0.5 mg orally take one in am and 2 at bedtime; 90 tabs 2RF dextroamphetamine-amphetamine 15 mg (Adderall) administer doses at least 4-6 hours apart; Partial Fill upon patient request. 15 mg PO BID 60 tabs 0RF trazodone 100 mg PO BEDTIME 30 tabs 2RF Counseling and coordination of Care Details: I spent [] minutes reviewing the record, seeing the patient and documenting in the medical record. Counseling provided to the patient/caregiver as outlined below. Addressed patient/caregiver concerns regarding current medication regime including effective adherence. Addressed patient/caregiver concerns regarding diagnosis a nd prognosis including accuracy of diagnosis, prognosis over time, impact of diagnosis. Addressed patient/caregiver concerns regarding impact of recent stressors. [facility] Medical History Intestinal malabsorption Obesity Surgical History History of Mukul-en-Y gastric bypass Hx laparoscopic cholecystectomy Hx of section Status post gastric banding Family History Father Prostate CA DM (diabetes mellitus) CVD (cardiovascular disease) HTN (hypertension) Obesity Arthritis Mother Obesity HTN (hypertension) Sister HTN (hypertension) Sister Ovarian ca Skin cancer DM (diabetes mellitus) HTN (hypertension) Sister Ovarian ca DM (diabetes mellitus) HTN (hypertension) Son No problems noted. Daughter No problems noted. Social History Alcohol intake: never Social History: grew up in [place], lived with parents, 1 sister 52 years old, 1 brother who in 2014 (41 year old) murder suicide him and 3 year old son, dad Nov. always ill, heart problem in 2019, close with dad, and mom and sister,. Has 2 children 23 year old daughter who lives alone and 13 year old son who lives with dad (for 2 years now) Pt has guardianship of niece and takes car of her Substance History: none Trauma History: loss of brother and nephew Coding Level of Care Code Est Pt Level 4 (43835) Diagnoses WOODROW (generalized anxiety disorder) F41.1 Major depressive disorder, recurrent episode, in partial remission F33.41 ADHD (attention deficit hyperactivity disorder), inattentive type F90.0
== END 2024-10-24 09:25 | disposition home or self-care (01) ==
LOC: HO.HOP 09:09
PROVIDERS: PCP Internal Medicine; Visit Provider Clinical Nurse Specialist Psychiatric/Mental Health
DX: F41.1 Generalized anxiety disorder (principal); F33.41 Major depressive disorder, recurrent, in partial remission; F90.0 Attention-deficit hyperactivity disorder, predominantly inattentive type
CPT/HCPCS: 99214

== ENCOUNTER 2025-01-09 09:25 | Outpatient (AMB) | payer OTHER, SELFPAY ==
--- NOTE | 2025-01-09 09:02 | A.OFFPSYCH_ITS ---
Intake Intake Visit Reasons: depression [employer] Supervisor Required: No Allergies Pt states no medication allerg Allergy (Unknown, Uncoded 09/08/21 08:13) Anaphylaxis Medication List - Last Reconciled 01/09/25 by Emely Shah APRN cetirizine 10 mg PO DAILY chlorthalidone 25 mg PO DAILY cholecalciferol (vitamin D3) 50 mcg PO DAILY clonazepam 0.5 mg orally take one in am and 2 at bedtime; clotrimazole-betamethasone 1-0.05 % 1 appl topical BID dextroamphetamine-amphetamine 15 mg (Adderall) 15 mg PO BID lorazepam (Ativan) 0.5 mg PO BID PRN [id number]-FA-vit K 45 mg iron- 800 mcg-120 mcg (Bariatric Multivitamins) caps PO nortriptyline 100 mg (2 x 50 mg) PO BEDTIME nystatin topical pantoprazole 40 mg PO DAILY potassium chloride ER 20 mEq PO DAILY sucralfate (Carafate) 1 g PO BID trazodone 100 mg PO BEDTIME HPI- Psychiatric Chief Complaint: depression HPI Narrative: here for follow up re: ADHD anxiety and depression Pt reports some increased sleep and low energy; reports increased worry and anxiety; most of the anxiety and worry related to work ; she is working 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 she sleeps more on Saturdays. Less energy for household tasks which is unlike her. she is coping well overall; med compliant no side effects; wants to keeps meds the same and plans to make some lifestyle changes. Past Psychiatric History: HCC: was seeing Dr. Tian, meds help, tried to wean off meds but didn't go well; Dec-March are very difficult months. In the past, she saw Dr. Tian for 3 years, started therapy about 3.5 years ago, suffered from depression since a child, insomnia, ADHD, panic disorder Subjective Subjective Subjective Medication Compliance: Yes Side effects from medications: No Review of Systems Medical Review of Systems: unchanged Mental Status Exam Mental Status Exam Patient Appearance: Well Grooomed and Fatigued Patient Orientation: Person, Place, Time and Situation Level of Consciousness: Awake and Appropriate Patient Behavior: Appropriate and Talkative Mood Description: Anxious Affect Description: Anxious Patient Cognition Impaired: No Ability to Follow Directions: Good Speech Pattern: Clear and Coherent Memory Description: Intact Hallucinations: None Thought Process: Intact and Goal Oriented Thought Content: positive for Intact and positive for Goal Oriented Judgement: Good Assessment and Plan Assessment & Plan (1) WOODROW (generalized anxiety disorder): Status: Acute Code(s): F41.1 - Generalized anxiety disorder (2) Major depressive disorder, recurrent episode, in partial remission: Status: Acute Code(s): F33.41 - Major depressive disorder, recurrent, in partial remission (3) ADHD (attention deficit hyperactivity disorder), inattentive type: Status: Acute Code(s): F90.0 - Attention-deficit hyperactivity disorder, predominantly inattentive type Plan continue medications return in 4 month Medications: Refilled clonazepam 0.5 mg orally take one in am and 2 at bedtime; 90 tabs 2RF dextroamphetamine-amphetamine 15 mg (Adderall) administer doses at least 4-6 hours apart; Partial Fill upon patient request. 15 mg PO BID 60 tabs 0RF lorazepam (Ativan) 0.5 mg PO BID PRN 60 tabs 2RF anxiety nortriptyline 100 mg (2 x 50 mg) PO BEDTIME 60 caps 2RF trazodone 100 mg PO BEDTIME 30 tabs 2RF Counseling and coordination of Care Pt. Self Management counseling: Maintenance-social rhythm and General coping skills Medication management counseling: Effectiveness, Side effects, Dosing range, Duration, Drug interaction and Adherence Diagnosis and Prognosis Counseling: Accuracy of diagnosis, Prognosis over time and Adequacy of current interventions Details: I spent 35 minutes reviewing the record, seeing the patient and documenting in the medical record. Counseling provided to the patient/caregiver as outlined below. Addressed patient/caregiver concerns regarding current medication regime including effective adherence. Addressed patient/caregiver concerns regarding diagnosis and prognosis including accuracy of diagnosis, prognosis over time, impact of diagnosis. Addressed patient/caregiver concerns regarding impact of recent stressors. [facility] Medical History Intestinal malabsorption Obesity Surgical History History of Mukul-en-Y gastric bypass Hx laparoscopic cholecystectomy Hx of section Status post gastric banding Family History Father Prostate CA DM (diabetes mellitus) CVD (cardiovascular disease) HTN (hypertension) Obesity Arthritis Mother Obesity HTN (hypertension) Sister HTN (hypertension) Sister Ovarian ca Skin cancer DM (diabetes mellitus) HTN (hypertension) Sister Ovarian ca DM (diabetes mellitus) HTN (hypertension) Son No problems noted. Daughter No problems noted. Social History Alcohol intake: never Social History: grew up in [place], lived with parents, 1 sister 52 years old, 1 brother who in 2014 (41 year old) murder suicide him and 3 year old son, dad Nov. always ill, heart problem in 2019, close with dad, and mom and sister,. Has 2 children 23 year old daughter who lives alone and 13 year old son who lives with dad (for 2 years now) Pt has guardianship of niece and takes car of her Substance History: none Trauma History: loss of brother and nephew Coding Level of Care Code Est Pt Level 4 (92556) Diagnoses WOODROW (generalized anxiety disorder) F41.1 Major depressive disorder, recurrent episode, in partial remission F33.41 ADHD (attention deficit hyperactivity disorder), inattentive type F90.0
== END 2025-01-09 09:27 | disposition home or self-care (01) ==
LOC: HO.HOP 09:25
PROVIDERS: PCP Internal Medicine; Visit Provider Clinical Nurse Specialist Psychiatric/Mental Health
DX: F41.1 Generalized anxiety disorder (principal); F33.41 Major depressive disorder, recurrent, in partial remission; F90.0 Attention-deficit hyperactivity disorder, predominantly inattentive type
CPT/HCPCS: 99214

== ENCOUNTER 2025-05-28 16:20 | Outpatient (AMB) | payer OTHER, SELFPAY ==
--- NOTE | 2025-05-28 16:31 | A.OFFPSYCH_ITS ---
Intake Intake Visit Reasons: depression Director Of Health Care Marketing Required: No Allergies Pt states no medication allerg Allergy (Unknown, Uncoded 09/08/21 08:13) Anaphylaxis Medication List - Last Reconciled 05/28/25 by Emely Shah APRN cetirizine 10 mg PO DAILY cholecalciferol (vitamin D3) 50 mcg PO DAILY clonazepam 0.5 mg orally take one in am and 2 at bedtime; clotrimazole-betamethasone 1-0.05 % 1 appl topical BID dextroamphetamine-amphetamine 15 mg (Adderall) 15 mg PO BID lorazepam (Ativan) 0.5 mg PO BID PRN [id number] K 45 mg iron- 800 mcg-120 mcg (Bariatric Multivitamins) caps PO nortriptyline 100 mg (2 x 50 mg) PO BEDTIME nystatin topical pantoprazole 40 mg PO DAILY potassium chloride ER 20 mEq PO DAILY sucralfate (Carafate) 1 g PO BID trazodone 100 mg PO BEDTIME HPI- Psychiatric Chief Complaint: depression HPI Narrative: here for follow up re: ADHD anxiety and depression Pt reports better sleep and energy; reports less worry and anxiety; She has had some recent disappointment with family. she is coping well overall; med compliant no side effects; wants to keeps meds the same and plans to make some lifestyle changes. Past Psychiatric History: HCC: was seeing Dr. Tian, meds help, tried to wean off meds but didn't go well; Dec-March are very difficult months. In the past, she saw Dr. Tian for 3 years, started therapy about 3.5 years ago, suffered from depression since a child, insomnia, ADHD, panic disorder Mental Status Exam Mental Status Exam Patient Appearance: Well Grooomed and Fatigued Patient Orientation: Person, Place, Time and Situation Level of Consciousness: Awake and Appropriate Patient Behavior: Appropriate and Talkative Mood Description: Anxious Affect Description: Anxious Patient Cognition Impaired: No Ability to Follow Directions: Good Speech Pattern: Clear and Coherent Memory Description: Intact Hallucinations: None Thought Process: Intact and Goal Oriented Thought Content: positive for Intact and positive for Goal Oriented Judgement: Good Assessment and Plan Assessment & Plan (1) WOODROW (generalized anxiety disorder): Status: Acute Code(s): F41.1 - Generalized anxiety disorder (2) Major depressive disorder, recurrent episode, in partial remission: Status: Acute Code(s): F33.41 - Major depressive disorder, recurrent, in partial remission (3) ADHD (attention deficit hyperactivity disorder), inattentive type: Status: Acute Code(s): F90.0 - Attention-deficit hyperactivity disorder, predominantly inattentive type Plan continue medications return in 4 month Medications: Refilled clonazepam 0.5 mg orally take one in am and 2 at bedtime; 90 tabs 2RF dextroamphetamine-amphetamine 15 mg (Adderall) administer doses at least 4-6 hours apart; Partial Fill upon patient request. 15 mg PO BID 60 tabs 0RF trazodone 100 mg PO BEDTIME 30 tabs 2RF lorazepam (Ativan) 0.5 mg PO BID PRN 60 tabs 2RF anxiety nortriptyline 100 mg (2 x 50 mg) PO BEDTIME 60 caps 2RF Counseling and coordination of Care Pt. Self Management counseling: Maintenance-social rhythm and General coping skills Medication management counseling: Effectiveness, Side effects, Dosing range, Duration, Drug interaction and Adherence Diagnosis and Prognosis Counseling: Accuracy of diagnosis, Prognosis over time and Adequacy of current interventions Details: I spent 40 minutes reviewing the record, seeing the patient and documenting in the medical record. Counseling provided to the patient/caregiver as outlined below. Addressed patient/caregiver concerns regarding current medication regime including effective adherence. Addressed patient/caregiver concerns regarding diagnosis and prognosis including accuracy of diagnosis, prognosis over time, impact of diagnosis. Addressed patient/caregiver concerns regarding impact of recent stressors. [facility] Medical History Intestinal malabsorption Obesity Surgical History History of Mukul-en-Y gastric bypass Hx laparoscopic cholecystectomy Hx of section Status post gastric banding Family History Father Prostate CA DM (diabetes mellitus) CVD (cardiovascular disease) HTN (hypertension) Obesity Arthritis Mother Obesity HTN (hypertension) Sister HTN (hypertension) Sister Ovarian ca Skin cancer DM (diabetes mellitus) HTN (hypertension) Sister Ovarian ca DM (diabetes mellitus) HTN (hypertension) Son No problems noted. Daughter No problems noted. Social History Alcohol intake: never Social History: grew up in [place], lived with parents, 1 sister 52 years old, 1 brother who in 2014 (41 year old) murder suicide him and 3 year old son, dad Nov. always ill, heart problem in 2019, close with dad, and mom and sister,. Has 2 children 23 year old daughter who lives alone and 13 year old son who lives with dad (for 2 years now) Pt has guardianship of niece and takes car of her Substance History: none Trauma History: loss of brother and nephew Coding Level of Care Code Est Pt Level 4 (19384) Diagnoses WOODROW (generalized anxiety disorder) F41.1 Major depressive disorder, recurrent episode, in partial remission F33.41 ADHD (attention deficit hyperactivity disorder), inattentive type F90.0
== END 2025-05-28 16:50 | disposition home or self-care (01) ==
LOC: HO.HOP 16:20
PROVIDERS: PCP Internal Medicine; Visit Provider Clinical Nurse Specialist Psychiatric/Mental Health
DX: F41.1 Generalized anxiety disorder (principal); F33.41 Major depressive disorder, recurrent, in partial remission; F90.0 Attention-deficit hyperactivity disorder, predominantly inattentive type
CPT/HCPCS: 99214

== ENCOUNTER 2025-10-06 15:31 | Outpatient (AMB) | payer OTHER, SELFPAY ==
--- NOTE | 2025-10-06 15:30 | MHC.OFFVISPS ---
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 Allergies Pt states no medication allerg Allergy (Unknown, Uncoded 09/08/21 08:13) Anaphylaxis Medication List - Last Reconciled 10/06/25 by Emely Shah APRN cetirizine 10 mg PO DAILY cholecalciferol (vitamin D3) 50 mcg PO DAILY clonazepam 0.5 mg orally take one in am and 2 at bedtime; clotrimazole-betamethasone 1-0.05 % 1 appl topical BID dextroamphetamine-amphetamine 15 mg (Adderall) 15 mg PO BID lorazepam (Ativan) 0.5 mg PO BID PRN [id number]-FA-vit K 45 mg iron- 800 mcg-120 mcg (Bariatric Multivitamins) caps PO nortriptyline 100 mg (2 x 50 mg) PO BEDTIME nystatin topical pantoprazole 40 mg PO DAILY potassium chloride ER 20 mEq PO DAILY sucralfate (Carafate) 1 g PO BID trazodone 100 mg PO BEDTIME HPI- Psychiatric Chief Complaint: depression HPI Narrative: pt seen via telehealth [facility] for follow up re: ADHD anxiety and depression Pt reports much improvement; she reports better sleep and energy;mood good feels happy much of the tie. reports less worry and anxiety; Work and family going well .she is coping well overall; med compliant no side effects; wants to keeps meds the same and plans to make some lifestyle changes. Past Psychiatric History: HCC: was seeing Dr. Tian, meds help, tried to wean off meds but didn't go well; Dec-March are very difficult months. In the past, she saw Dr. Tian for 3 years, started therapy about 3.5 years ago, suffered from depression since a child, insomnia, ADHD, panic disorder Subjective Subjective Medication Compliance: Yes Side effects from medications: No Review of Systems Medical Review of Systems: unchanged Mental Status Exam Mental Status Exam Patient Appearance: Well Grooomed and Fatigued Patient Orientation: Person, Place, Time and Situation Level of Consciousness: Awake and Appropriate Patient Behavior: Appropriate and Talkative Mood Description: Anxious Affect Description: Anxious Patient Cognition Impaired: No Ability to Follow Directions: Good Speech Pattern: Clear and Coherent Memory Description: Intact Hallucinations: None Thought Process: Intact and Goal Oriented Thought Content: positive for Intact and positive for Goal Oriented Judgement: Good Telehealth Telehealth Telehealth Platform: CHORD Location of provider rendering services: practice address Location of patient: address on file Patient Identification confirmed using: Name, : Yes Telehealth method: voice only Patient verbally consented to treatment: Yes Patient verbally consented to billing insurance company: Yes Patient informed of any privacy concerns related to visit: Yes Minutes spent on Phone/Video with Pt.: 20 Assessment and Plan Assessment & Plan (1) WOODROW (generalized anxiety disorder): Status: Acute Code(s): F41.1 - Generalized anxiety disorder (2) Major depressive disorder, recurrent episode, in partial remission: Status: Acute Code(s): F33.41 - Major depressive disorder, recurrent, in partial remission (3) ADHD (attention deficit hyperactivity disorder), inattentive type: Status: Acute Code(s): F90.0 - Attention-deficit hyperactivity disorder, predominantly inattentive type Plan continue medications return in 4 month Medications: Refilled nortriptyline 100 mg (2 x 50 mg) PO BEDTIME 60 caps 2RF dextroamphetamine-amphetamine 15 mg (Adderall) administer doses at least 4-6 hours apart; Partial Fill upon patient request. 15 mg PO BID 60 tabs 0RF clonazepam 0.5 mg orally take one in am and 2 at bedtime; 90 tabs 2RF lorazepam (Ativan) 0.5 mg PO BID PRN 60 tabs 2RF anxiety trazodone 100 mg PO BEDTIME 30 tabs 2RF Counseling and coordination of Care Pt. Self Management counseling: Maintenance-social rhythm and General coping skills Medication management counseling: Effectiveness, Side effects, Dosing range, Duration, Drug interaction and Adherence Diagnosis and Prognosis Counseling: Accuracy of diagnosis, Prognosis over time and Adequacy of current interventions Details: I spent 24 minutes reviewing the record, seeing the patient and documenting in the medical record. Counseling provided to the patient/caregiver as outlined below. Addressed patient/caregiver concerns regarding current medication regime including effective adherence. Addressed patient/caregiver concerns regarding diagnosis and prognosis including accuracy of diagnosis, prognosis over time, impact of diagnosis. Addressed patient/caregiver concerns regarding impact of recent stressors. [facility] Medical History Intestinal malabsorption Obesity Surgical History History of Mukul-en-Y gastric bypass Hx laparoscopic cholecystectomy Hx of section Status post gastric banding Family History Father Prostate CA DM (diabetes mellitus) CVD (cardiovascular disease) HTN (hypertension) Obesity Arthritis Mother Obesity HTN (hypertension) Sister HTN (hypertension) Sister Ovarian ca Skin cancer DM (diabetes mellitus) HTN (hypertension) Sister Ovarian ca DM (diabetes mellitus) HTN (hypertension) Son No problems noted. Daughter No problems noted. Social History Alcohol intake: never Social History: grew up in [place], lived with parents, 1 sister 52 years old, 1 brother who in 2014 (41 year old) murder suicide him and 3 year old son, dad Nov. always ill, heart problem in 2018, close with dad, and mom and sister,. Has 2 children 23 year old daughter who lives alone and 13 year old son who lives with dad (for 2 years now) Pt has guardianship of niece and takes car of her Substance History: none Trauma History: loss of brother and nephew Coding Level of Care Code Tele Est Pt Level 3 (45955) Diagnoses WOODROW (generalized anxiety disorder) F41.1 Major depressive disorder, recurrent episode, in partial remission F33.41 ADHD (attention deficit hyperactivity disorder), inattentive type F90.0
--- OUTSIDE RECORDS SUMMARY | 2025-10-06 17:05 | XMS_ITS | Clinical Summary ---
Author Organization [facility] [address] [facility] Address [address] [place] [address] Phone Care Team Providers Care Flying Instructor Name Role Phone Radha Kong MD Primary Care Prov ider Allergies No known active allergies Medications cetirizine (ZyrTEC) 10 mg tablet Take 1 tablet (10 mg total) by mouth 1 (one) time each day. 4 Active cholecalciferol (VITAMIN D-3) 50 mcg (2,000 unit) capsule Take 1 capsule (2,000 Units total) by mouth 1 (one) time each day. 4 Active clonazePAM (KlonoPIN) 1 mg tablet Take 1 tablet (1 mg total) by mouth 1 (one) time each day. for 30 days 9 Active clotrimazole-be tamethasone (LOTRISONE) 1-0.05 % cream Apply topically 2 (two) times a day. to the affected area. 4 Active amphetamine-dex troamphetamine (ADDERALL) 15 mg tablet Take 1 tablet (15 mg total) by mouth 2 (two) times a day. 9 Active LORazepam (ATIVAN) 0.5 mg tablet Take 1 tablet (0.5 mg total) by mouth 1 (one) time each day if needed for anxiety. for up to 30 days. 9 Active nortriptyline (PAMELOR) 50 mg capsule Take 2 capsules (100 mg total) by mouth at bedtime. for 90 days 9 Active pantoprazole (PROTONIX) 40 mg EC tablet Take 1 tablet (40 mg total) by mouth 1 (one) time each day. 4 Active traZODone (DESYREL) 100 mg tablet Take 1 tablet (100 mg total) by mouth at bedtime. 9 Active nystatin (MYCOSTATIN) 100,000 unit/gram powder Apply topically 2 (two) times a day. under the breast for 7 to 10 days 15 g 3 5 Active chlorthalidone (HYGROTON) 25 mg tablet TAKE 1 TABLET BY MOUTH DAILY 90 tablet 3 5 Active chlorthalidone (HYGROTON) 25 mg tablet Take 1 tablet (25 mg total) by mouth 1 (one) time each day. 90 each 3 5 Active Active Problems Problem Noted Date Diagnosed Date Fatty liver 05/27/2019 Benign essential hypertension 10/16/2017 Assessment & Plan (06/26/2025 2:31 PM EDT): BP is well controlled, she is on chlorthalidone 25mg. Previously switched to spironolactone for low potassium, but she presented legs edema, so she went back to chlorthalidone. Asymptomatic. Will recheck bmp today, if low K will start a combination of hctz/spronolactone. Assessment & Plan (12/24/2024 10:36 AM EST): Well controlled on Chlorthalidone 25 mg day. However patient has presented episodes of hypokalemia. Pending lab results from today. Would consider Spironolactone if hypokalemia. Iron deficiency anemia due to chronic blood loss 10/16/2017 Snoring 05/31/2017 Overview (08/04/2024): 05/15/2017 Home Sleep Study did not reveal sleep apnea. 08/2019 Home Sleep Study did not reveal sleep apnea or nocturnal hypoxia. Morbid obesity (CMS/HCC V24, CMS/HCC V28) 2013 Overview (08/04/2024): BMI 41.93 on 03/17/13. Assessment & Plan (12/24/2024 10:36 AM EST): BMI 32.8. She has been successfully losing weight. Follows a healthy diet. Lifestyle changes were encouraged and congratulated. Anemia 04/14/2013 Social phobia 12/20/2011 ADHD (attention deficit hyperactivity disorder) 04/27/2010 Depression 04/27/2010 Anxiety 11/10/2009 Allergic rhinitis 03/03/2009 Insomnia 08/25/2008 GERD (gastroesophageal reflux disease) 8 Ovarian cyst 02/04/2008 Resolved Problems Problem Noted Date Diagnosed Date Resolved Date PSVT (paroxysmal supraventri cular tachycardia) ([facility] V24) 05/31/2017 12/24/2024 Immunizations Immunization Administration Dates Next Due Hepatitis B (Swjrozz-E-Qqudn , Recombivax HB-Adult) 19yo and older 09/28/2010,09/15/2009,03/03/2009 Influenza Quadravalent, MDCK , 0.5ml, with preservative (Flucelvax) 6mo and older 10/08/2019,10/16/2017 Influenza trivalent, with preservative (Fluzone; Afluria) 6mo and older 10/20/2009,08/25/2008 Influenza, Unspecified 10/08/2019 MMR, measles mumps and rubel la Live (Priorix; M-M-R II) 12mo and older 10/20/2009 PPD Test 03/14/2017,,03/03/2011,2008 Td Tetanus diptheria (Tdvax) 7yo and older 11/17/2019 Tdap Tetanus diptheria acell ular pertussis (Boostrix; Adacel) 7yo and older 09/13/2009 Varicella live (Varivax) 12m o and older 12/10/2009,11/17/2009 Surgical History Surgery Date Site/Laterality Comments SECTION 05/2006 PROCEDURE: HISTORICAL DELIVERY; COMMENT: no complications LAPAROSCOPIC GASTRIC BANDING 05/2010 PROCEDURE: LAP ADJUSTABLE GASTRIC BAND CHOLECYSTECTOMY 12/03/2017 PROCEDURE: HISTORICAL CHOLECYSTECTOMY; COMMENT: [facility] ABDOMINAL SURGERY 12/03/2017 PROCEDURE: HISTORICAL ABDOMINAL SURGERY; COMMENT: [facility]; remove lap band and cholecystectomy UPPER GASTROINTESTINAL ENDOSCOPY 2017 PROCEDURE: [place] UPPER GI ENDOSCOPY PERFORMED; COMMENT: [facility]; normal OTHER SURGICAL HISTORY 01/13/2020 PROCEDURE: [place] LAPS GSTR RSTCV PX W/BYP SCOTT-EN-Y LIMB <150 CM; COMMENT: Dr Peralta Medical History Medical History Date Comments GERD (gastroesophageal reflux disease) 02/04/2008 DX:GERD (gastroesophageal reflux disease) Ovarian cyst 02/04/2008 DX:Ovarian cyst Elevated blood pressure read ing without diagnosis of hypertension DX:Elevated blood pressure r eading without diagnosis of hypertension PSVT (paroxysmal supraventri cular tachycardia) ([facility] V24) 05/31/2017 Family History Medical History Relation Name Comments Colon polyps Father benign; multipl e polyps Coronary artery disease Father Diabetes Father Other: SCC Father squamous cell c ancer Prostate cancer Father Stroke Father x 4, impaired s peech with muscle weakness Colon polyps Mother benign; small n umber of polyps Hypertension Mother Ovarian cancer Sister 1 Ovarian cancer Sister 2 Breast cancer Neg Hx Colon cancer Neg Hx Relation Name Status Comments Brother Alive A&W Daughter Alive (18) A&W Father HTN, CAD, Prost ate Ca (dx'd early 60s), DM, DVT Maternal Grandfather (Age 53) Le ukemia Maternal Grandmother Mother Alive HTN, arthritis Paternal Grandfather Paternal Grandmother Sister 1 Alive DMII Sister 2 Sister 3 Alive (1/2 sister) HT N, DMII, CAD, Ovarian CA (dx'd 43), phlebitis, CVA Son Alive (8) A&W Social History Tobacco Use Types Packs/Day Years Used Date Smoking Tobacco: Never Smokeless Tobacco: Never Tobacco Cessation:Counseling Given: Not Answered Alcohol Use Standard Drinks/Week Comments Yes 0 (1 standard drink = 0.6 oz pur e alcohol) Housing Instability Answer Date Recorde d Are you worried that in the next 2 months you may not have stable housing? No 09/09/2024 Food Access & Nutrition Answer Date Rec orded Do you have access to a vari ety of food including fruits and vegetables? Yes 09/09/2024 Access to Healthcare Answer Date Record ed Within the last 3 months, ho w many times did you visit the emergency department for your medical care? 0 09/09/2024 Health Literacy Answer Date Recorded How often do you need to hav e someone help you when you read instructions, pamphlets, or other written material from your doctor or pharmacy? Never 09/09/2024 Caregiver: How often do you need to have someone help you when you read instructions, pamphlets, or other written material from your doctor or pharmacy? Not on file 09/09/2024 Financial Risk Answer Date Recorded How hard is it for you to pa y for the very basics like food, housing, medical care, and air conditioning / heating? Not very hard 09/09/2024 Transportation Answer Date Recorded Has the lack of transportati on kept you from meetings, work, or from getting things needed for daily living? No Has the lack of transportati on kept you from medical appointments or from getting medications? No 09/09/2024 Social Isolation Answer Date Recorded How often do you feel lonely or isolated from th ose around you? Never 09/09/2024 Food Risk Answer Date Recorded Within the past 12 months we worried whether our food would run out before we got money to buy more. Never true 09/09/2024 Within the past 12 months th e food we bought just didn't last and we didn't have money to get more. Never true 09/09/2024 Dependent Care Answer Date Recorded Do you need help finding or paying for care for your loved ones. For example, child health associate or elderly care for an older adult? No 09/09/2024 Education Answer Date Recorded Do you think completing more education or training, like finishing a GED, going to college, or learning a trade, would be helpful for you? No 09/09/2024 Employment and Income Answer Date Recor ded During the last four weeks, have you been actively looking for work? No 09/09/2024 Living Situation Answer Date Recorded What is your living situation? Unrecognized valu e 09/09/2024 Comments No Sex and Gender Information Value Date Recorded Sex Assigned at Female 07/15/2025 12:41 PM EDT Legal Sex Female 10:08 AM EST Gender Identity Not on file Sexual Orientation Not on file Obstetrics History Last Filed Vital Signs Vital Sign Reading Time Taken Comments Blood Pressure 114/74 06/26/2025 2:05 PM EDT Pulse 94 06/26/2025 2:05 PM EDT Temperature 36.7 C (98.1 F) 06/26/2025 2:05 PM EDT Respiratory Rate 15 06/26/2025 2:05 PM EDT Oxygen Saturation 99% 06/26/2025 2:05 PM EDT Inhaled Oxygen Concentration - - Weight 89.6 kg (197 lb 9.6 oz) 06/26/2025 2:05 P M EDT Height 165.1 cm (5' 5 ) 06/26/2025 2:05 PM EDT Body Mass Index 32.88 06/26/2025 2:05 PM EDT Plan of Treatment Upcoming Encounters Date Type Department Care Team (Late st Contact Info) Description 07/05/2026 7:30 AM EDT Office Visit Adult Medicine [facility] [address] [place] [phone] Radha Kong MD [address] [place] [address] Health Maintenance Due Date Last Done Comments Colorectal Cancer Screening: Colonoscopy 1975 Breast Cancer Screening 03/16/2025 03/16/2023, 04/26 COVID-19 Vaccine ( season) 2025 12/05/2021, 02/14/2021, 01/16/2021 Social Influencers of Health Screening 09/09/2025 09/09/2024 Pneumococcal Vaccine: 50+ Years (1 of 1 - PCV) 2025 Zoster Vaccines (1 of 2) 2025 12/10/2009, 11/05 Cervical Cancer Screening: Pap Smear 01/18/2026 01/18/2023 Hypertension/CHF/CAD Annual BMP Blood Test 06/26/2026 06/26/2025, 12/24/2024, 03/06/2024, Additional history exists DTaP,Tdap,and Td Vaccines (3 - Td or Tdap) 11/17/2029 11/17/2019, 09/13/2009 Cholesterol Screening (Lipid Panel) 12/24/2029 12/24/2024, 06/18/2023 RSV Immunization Adult Patients (1 - 1-dose 75+ series) 2050 MMR Vaccines Aged Out 10/20/2009 No longer eligi ble based on patient's age to complete this topic Varicella Vaccines Aged Out 12/10/2009, 11/17/2009 No longer eligible based on patient's age to complete this topic Hepatitis B Vaccines Completed 09/28/2010, 09/15/2009, 03/03/2009 HIV Screening Completed 03/10/2011 Hepatitis C Screening Completed 04/23/2019 Influenza Vaccine Discontinued 10/08/2019, , 10/16/2017, Additional history exists Depression Screening Completed 06/26/2025 HIB Vaccines Aged Out No longer eligi ble based on patient's age to complete this topic HPV Vaccines Aged Out No longer eligi ble based on patient's age to complete this topic Hepatitis A Vaccines Aged Out No long er eligible based on patient's age to complete this topic IPV Vaccines Aged Out No longer eligi ble based on patient's age to complete this topic Meningococcal ACWY Vaccine Aged Out N o longer eligible based on patient's age to complete this topic Meningococcal B Vaccine Aged Out No l onger eligible based on patient's age to complete this topic RSV Immunization Patients Under 20 months Aged Out No longer eligible based on patient's age to complete this topic Procedures Procedure Name Priority Date/Time Associated Diagnosis Comments BASIC METABOLIC PANEL Routine 06/26/2025 2:43 PM EDT Adult general medical examination LIPID PANEL WITH REFLEX TO DIRECT LDL Routine 12/24/2024 7:47 AM EST Benign essential hypertension PAP SMEAR Routine 01/18/2023 SCR MAMMO BI INCL CAD Routine 04/26/2019 2:52 PM EDT Encounter for screening mammogram for malignant neoplasm of breast HEPATITIS C SCREENING Routine 04/23/2019 HIV SCREENING Routine 03/10/2011 from Last 3 Months or Most Recently Relevant to Health Maintenance Results * (ABNORMAL) Basic metabolic panel (06/26/2025 2:43 PM EDT) Sodium 137 133 - 145 mmol/L LAB CHEMISTRY METHOD 06/26/2025 6:24 PM T [facility] Potassium 3.4(L) 3.5 - 5.5 mmol/L LAB CHEMISTRY METHOD 06/26/2025 6:24 PM [facility] Chloride 101 96 - 110 mmol/L LAB CHEMISTRY METHOD 06/26/2025 6:24 PM [facility] CO2 30 21 - 32 mmol/L LAB CHEMISTRY METHOD 06/26/2025 6:24 PM [facility] Anion Gap 6 3 - 11 LAB CHEMISTRY METHOD 06/26/2025 6:24 PM [facility] Glucose 76 70 - 100 mg/dL LAB CHEMISTRY METHOD 06/26/2025 6:24 PM [facility] BUN 14 5 - 25 mg/dL LAB CHEMISTRY METHOD 06/26/2025 6:24 PM [facility] Creatinine 0.79 0.50 - 1.10 mg/dL LAB CHEMISTRY METHOD 06/26/2025 6:24 PM [facility] eGFR 92 >=60 mL/min/1. 73m2 LAB CHEMISTRY METHOD 06/26/2025 6:24 PM [facility] Comment:Calculation based on the Chronic Kidney Disease Epidemiology Collaboration (CKD-EPI) equation refit without adjustment for race. BUN/Creatinine Ratio 17.7 LAB CHEMISTRY METHOD 06/26/2025 6:24 PM [facility] Calcium 9.0 8.5 - 10.5 mg/dL LAB CHEMISTRY METHOD 06/26/2025 6:24 PM [facility] Blood Venous blood specimen / Unknown Venipuncture / Unknown 06/26/2025 2:43 PM EDT 06/26/2025 2:43 PM EDT us Radha Kong MD LAB BLOOD ORDERABL ES Final Result [facility] [address] [place] [address], [place] [phone] * Lipid panel with reflex to direct LDL (12/24/2024 7:47 AM EST) Cholesterol 154 0 - 200 mg/dL LAB CHEMISTRY METHOD 12/24/2024 10:27 AM EST [facility] Triglycerides 97 0 - 150 mg/dL LAB CHEMISTRY METHOD 12/24/2024 10:27 AM EST [facility] HDL 46 >=40 mg/dL LAB CHEMISTRY METHOD 12/24/2024 10:27 AM EST [facility] LDL Calculated 89 0 - 100 mg/dL LAB CHEMISTRY METHOD 12/24/2024 10:27 AM [facility] VLDL Cholesterol Torey 19.4 mg/dL LAB CHEMISTRY METHOD 12/24/2024 10:27 AM EST [facility] Non HDL Chol. (LDL+VLDL) 108 <145 mg/dL LAB CHEMISTRY METHOD 12/24/2024 10:27 AM EST [facility] Chol/HDL Ratio 3.3 0.0 - 4.4 LAB CHEMISTRY METHOD 12/24/2024 10:27 AM [facility] Blood Venous blood specimen / Unknown Venipuncture / Unknown 12/24/2024 7:47 AM EST 12/24/2024 7:47 AM EST Radha Kong MD LAB BLOOD ORDERABL ES Final Result [facility] [address] [place] [address], [place] [phone] * Hm Pap Smear (01/18/2023) HM Pap smear No interpretation , abstracted Comment:External Completion Historical Provider HEALTH MAINTENANCE Final Result * SCR MAMMO BI INCL CAD (04/26/2019 2:52 PM EDT) Anatomical Region Laterality Modality Radiographic Omayra ging 04/03/2019 2:14 PM EDT Narrative 04/28/2019 10:36 AM EDT This is a summary report. The complete report is available in the patient's medical record. If you cannot access the medical record, please contact the sending organization for a detailed fax or copy. Baseline screening, full field digital mammography, reviewed with CAD. The breasts are composed of fatty and fibroglandular tissue. No suspicious mass, architectural distortion or suspicious calcifications are identified. IMPRESSION: : No mammographic evidence of malignancy. BIRADS 1-Negative; N. 5 year breast cancer risk assessment 0.5 % Lifetime breast cancer risk assessment 6.8 % Breast cancer risk category Low (<15%) Procedure Note Tabby Velasco MD - 10/24/2022 This is a summary report. The complete report is available in thepatient's medical record. If you cannot access the medical record, pleasecontact the sending organization for a detailed fax or copy. Baseline screening, full field digital mammography, reviewed with CAD.The breasts are composed of fatty and fibroglandular tissue. Nosuspicious mass, architectural distortion or suspicious calcifications areidentified. IMPRESSION: : No mammographic evidence of malignancy. BIRADS 1-Negative; N. 5 year breast cancer risk assessment 0.5 % Lifetime breast cancer risk assessment 6.8 % Breast cancer risk category Low (<15%) Mary Jo PICKETT IMG XR PROCEDURES Final Result * Hepatitis C Screening (04/23/2019) Pathologist [facility] Hepatitis C Screening Abstracted Historical Provider HEALTH MAINTENANCE Final Result * HIV Screening (03/10/2011) Pathologist [facility] HIV Screening Abstracted Result [facility] Historical Provider HEALTH MAINTENANCE Final Result from Last 3 Months or Most Recently Relevant to Health Maintenance Insurance [employer] Care Teams Flying Instructor Relationship Specialty Start Date End Date Radha Kong MD [address] [place] [phone] PCP - General Internal Medicine 03/24/22
== END 2025-10-06 16:32 | disposition home or self-care (01) ==
LOC: HO.HOP 15:31
PROVIDERS: PCP Internal Medicine; Visit Provider Clinical Nurse Specialist Psychiatric/Mental Health
DX: F41.1 Generalized anxiety disorder (principal); F33.41 Major depressive disorder, recurrent, in partial remission; F90.0 Attention-deficit hyperactivity disorder, predominantly inattentive type
CPT/HCPCS: 98013